=== PATIENT | female | born 1955 | race Caucasian/White ===

== ENCOUNTER 2018-12-28 06:34 | Inpatient (IN) | payer BC ==
[~2018-12-28] VITALS: Ht 177.8 cm; Wt 123.4 kg
[2018-12-28] VITALS (10 sets, daily range): BP systolic 99–140; BP diastolic 64–91
[2018-12-28] MEDS ORDERED: dilTIAZem 25 MG/5 ML VIAL IVP ONE ×2 (06:53→07:00)
[2018-12-28] MEDS ORDERED: IV NORMAL SALINE 1,000ML 1,000 ML IV SCH ×2 (06:54→08:25)
[2018-12-28] MEDS ORDERED: dilTIAZem VIAL 125 MG in IV DEXTROSE 5% 100 ML IV ONE (07:00)
--- NOTE | 2018-12-28 07:01 | PHYS DOC ---
Adult General Chief Complaint Chief Complaint: chest pain HPI HPI Patient is a 63 year old female who presents with complaint of chest pain and shortness of breath. Symptoms started over the past 3 days. Notes chest pain has been intermittent, however shortness of breath has been worsening during the past 3 days. States it's worse with exertion. Awoke with pressure-like chest pain this morning. Patient states that while at rest currently she is having no chest pain. Denies any history of any previous heart problems. Does admit to worsening lower extremity edema over the past few weeks. Denies fever. Recently seen within the last week by primary doctor. Diagnosed with urinary tract infection and started on antibiotic. Denies abdominal pain or bloody stools. Review of Systems Review of Systems Constitutional: Denies fever or chills [] Eyes: Denies change in visual acuity, redness, or eye pain [] HENT: Denies nasal congestion or sore throat [] Respiratory: Shortness of breath, denies cough[] Cardiovascular: Chest pain, dyspnea on exertion, lower extremity edema[] GI: Denies abdominal pain, nausea, vomiting, bloody stools or diarrhea [] : Denies dysuria or hematuria [] Musculoskeletal: Denies back pain or joint pain [] Integument: Denies rash or skin lesions [] Neurologic: Denies headache, focal weakness or sensory changes [] All other systems were reviewed and found to be within normal limits, except as documented in this note. Current Medications Current Medications Current Medications Medications (Trade) Dose Ordered Sig/Omid Start Time Stop Time Status Last Admin Dose Admin Diltiazem HCl (Cardizem Iv Push) 25 mg STK-MED ONCE 12/28/18 06:53 12/28/18 06:54 DC Physical Exam Physical Exam Constitutional: Alert, afebrile, appears ill and in moderate distress. [] HENT: Normocephalic, atraumatic, bilateral external ears normal, oropharynx moist, no oral exudates, nose normal. [] Eyes: PERRLA, EOMI, conjunctiva normal, no discharge. [] Neck: Normal range of motion, no tenderness, supple, no stridor. [] Cardiovascular: Tachycardia, irregular rhythm, no murmur [] Lungs & Thorax: Tachypneic, fine rales bilaterally, no wheezes[] Abdomen: Bowel sounds normal, soft, no tenderness, no masses, no pulsatile masses. [] Skin: Warm, dry, no erythema, no rash. [] Back: No tenderness, no CVA tenderness. [] Extremities: No tenderness, no cyanosis, no clubbing, ROM intact, 1+ edema in the bilateral lower extremities. [] Neurologic: Alert and oriented X 3, normal motor function, normal sensory function, no focal deficits noted. [] Current Patient Data Vital Signs Vital Signs Date Time Temp Pulse Resp B/P (MAP) Pulse Ox O2 Delivery O2 Flow Rate FiO2 12/28/18 07:10 171 150/89 (109) 12/28/18 07:10 20 94 Lab Results Laboratory Tests Test 12/28/18 06:45 12/28/18 07:40 White Blood Count 7.8 x10^3/uL Red Blood Count 4.93 x10^6/uL Hemoglobin 13.1 g/dL Hematocrit 39.9 % Mean Corpuscular Volume 81 fL Mean Corpuscular Hemoglobin 27 pg Mean Corpuscular Hemoglobin Concent 33 g/dL Red Cell Distribution Width 15.3 % Platelet Count 206 x10^3/uL Neutrophils (%) (Auto) 62 % Lymphocytes (%) (Auto) 28 % Monocytes (%) (Auto) 9 % Eosinophils (%) (Auto) 1 % Basophils (%) (Auto) 1 % Neutrophils # (Auto) 4.8 x10^3uL Lymphocytes # (Auto) 2.2 x10^3/uL Monocytes # (Auto) 0.7 x10^3/uL Eosinophils # (Auto) 0.1 x10^3/uL Basophils # (Auto) 0.1 x10^3/uL Prothrombin Time 11.5 SEC Prothromb Time International Ratio 1.2 Activated Partial Thromboplast Time 23 SEC D-Dimer (Neda) 1.92 mg/L Sodium Level 142 mmol/L Potassium Level 3.9 mmol/L Chloride Level 105 mmol/L Carbon Dioxide Level 25 mmol/L Anion Gap 12 Blood Urea Nitrogen 16 mg/dL Creatinine 1.1 mg/dL Estimated GFR (Cockcroft-Gault) 50.3 BUN/Creatinine Ratio 15 Glucose Level 146 mg/dL Calcium Level 8.8 mg/dL Magnesium Level 1.8 mg/dL Total Bilirubin 0.6 mg/dL Aspartate Amino Transf (AST/SGOT) 43 U/L Alanine Aminotransferase (ALT/SGPT) 41 U/L Alkaline Phosphatase 101 U/L Creatine Kinase 90 U/L Creatine Kinase MB (Mass) 1.1 ng/mL Creatine Kinase MB Relative Index 1.2 % Troponin I Quantitative 0.026 ng/mL XX-Stj-I-Type Natriuretic Peptide 3231 pg/mL Total Protein 7.1 g/dL Albumin 3.3 g/dL Albumin/Globulin Ratio 0.9 Urine Collection Type Unknown Urine Color Megan Urine Clarity Cloudy Urine pH 6.0 Urine Specific [place] 1.020 Urine Protein 30 mg/dl Urine Glucose (UA) Neg mg/dL Urine Ketones (Stick) Neg mg/dL Urine Blood Neg Urine Nitrite Neg Urine Bilirubin Neg Urine Urobilinogen Dipstick 4 mg/dL Urine Leukocyte Esterase Neg Urine RBC Rare /HPF Urine WBC 1-4 /HPF Urine Squamous Epithelial Cells Mod /LPF Urine Transitional Epithelial Cells Few /LPF Urine Bacteria Few /HPF Urine Hyaline Casts Occ /HPF Urine Mucus Marked /LPF Current Medications Medications (Trade) Dose Ordered Sig/Omid Route PRN Reason Start Time Stop Time Status Last Admin Dose Admin Diltiazem HCl (Cardizem Iv Push) 25 mg STK-MED ONCE IVP 12/28/18 06:53 12/28/18 06:54 DC Diltiazem HCl (Cardizem Iv Push) 20 mg 1X ONCE IVP 12/28/18 07:00 12/28/18 07:13 DC 12/28/18 07:02 Diltiazem HCl 125 mg/Dextrose 125 ml @ 10 mls/hr 1X ONCE IV 12/28/18 07:00 12/28/18 19:29 12/28/18 07:20 Sodium Chloride 1,000 ml @ 125 mls/hr Q8H IV 12/28/18 06:54 12/28/18 14:53 12/28/18 07:21 Ondansetron HCl (Zofran) 4 mg STK-MED ONCE .ROUTE 12/28/18 07:02 12/28/18 07:03 DC Dextrose 100 ml @ As Directed STK-MED ONCE IV 12/28/18 07:05 12/28/18 07:06 DC Diltiazem HCl (Cardizem) 125 mg STK-MED ONCE IV 12/28/18 07:05 12/28/18 07:06 DC Iohexol (Omnipaque 350 Mg/ml) 100 ml 1X ONCE IV 12/28/18 08:35 12/28/18 08:36 EKG EKG Interpreted by me: Heart rate 176, atrial fibrillation with rapid ventricular response, no acute ST/T-wave abnormalities[] Radiology/Procedures Radiology/Procedures [address] [address] IMAGING REPORT Signed PATIENT: JES GAMING ACCOUNT: [id number] : 1955 LOCATION: ICU AGE: 63 SEX: F EXAM STATUS: ADM IN ORD. PHYSICIAN: ALVIN RAMIREZ MD REASON: Chest pain, shortness of breath, chf, positive ddimer PROCEDURE: CT ANGIOGRAPHY CHEST CT arteriogram of the chest. HISTORY: Chest pain, short of breath, CHF, positive d-dimer CT arteriogram of the chest was done using 100 mL Omnipaque 350 contrast. Thyroid is homogeneous. Paratracheal lymph node is upper normal in size. There are moderate bilateral pleural effusions. Visualized portions of the liver and spleen are unremarkable. Patient's had a cholecystectomy. Adrenal glands are normal. There is a focal infiltrate or mass in the lateral right lung apex measuring 1.6 cm. Fall close interval follow-up study with the patient improves would be of benefit to exclude lung cancer. There is interstitial changes suggesting interstitial pulmonary edema. There is evidence of pulmonary emboli in the superior segment of the right lower lobe, in the right middle lobe. IMPRESSION: 1. IMPRESSION: 1. Right middle lobe and right lower lobe pulmonary emboli. 2. Bilateral pleural effusions. 3. Interstitial and alveolar changes suggesting pulmonary edema. 4. Right upper lobe infiltrate or pulmonary infarct although somewhat rounded in appearance and a mass is possible, follow-up would be of benefit. Electronically signed by: Bo Trinh MD (12/28/2018 9:05 AM) [facility] DICTATED AND SIGNED BY: BO TRINH MD DATE: 12/28/18904 CC: ALVIN RAMIREZ MD; AKASH WIGGINS MD; JAMIE DELGADO MD ~ [address] [address] IMAGING REPORT Signed PATIENT: JES GAMING ACCOUNT: [id number] : 1955 LOCATION: ER AGE: 63 SEX: F EXAM STATUS: REG ER ORD. PHYSICIAN: ALVIN RAMIREZ MD REASON: Chest pain PROCEDURE: PORTABLE CHEST 1V AP chest. HISTORY: Chest pain AP view was taken of the chest. Lungs are clear. Heart is normal in size without heart failure. There is no effusion. IMPRESSION: 1. No acute chest disease. Electronically signed by: Bo Trinh MD (12/28/2018 7:27 AM) [facility] DICTATED AND SIGNED BY: BO TRINH MD DATE: 12/28/18726 CC: ALVIN RAMIREZ MD; AKASH WIGGINS MD ~ [] Course & Med Decision Making Course & Med Decision Making Pertinent Labs and Imaging studies reviewed. (See chart for details) Patient was found to be in A. fib with RVR. Patient was administered 20 mg of IV Cardizem. Heart rate improved to 105-110 bpm after initial administration. Patient started on continuous Cardizem infusion. On reevaluation at 0720, the patient states that she is feeling better at this time. Lab work shows positive d-dimer. CT angiography of chest pending at time of admission. I spoke with Dr. Bedolla of cardiology regarding patient's condition. He agreed with initial management and stated that he would be happy to consult on patient here at [facility]. Patient admitted to Dr. Delgado. 0945: CT angio shows evidence of pulmonary emboli. Patient initiated on heparin treatment in transition to ICU bed. Critical care time excluding procedures: 45 minutes[] Dragon Disclaimer Dragon Disclaimer This electronic medical record was generated, in whole or in part, using a voice recognition dictation system. Departure Departure: Impression: Primary Impression: Atrial fibrillation with RVR Additional Impressions: Acute congestive heart failure Multiple pulmonary emboli Disposition: ADMITTED INPATIENT Admitting Physician: Other Condition: GUARDED Referrals: AKASH WIGGINS MD (PCP) Problem Qualifiers Additional Impressions: Acute congestive heart failure Heart failure type: unspecified Qualified Codes: I50.9 - Heart failure, unspecified ALVIN RAMIREZ MD Dec 28, 2018 07:01
[2018-12-28] MEDS ORDERED: ONDANSETRON PF 4 MG/2 ML VIAL. ONE (07:02)
[2018-12-28 07:04] LABS: BASO # 0.1 x10^3/uL (0.0-0.2); BASO % 1 % (0-3); EOS # 0.1 x10^3/uL (0.0-0.7); EOS % 1 % (0-3); HEMATOCRIT 39.9 % (36.0-47.0); HEMOGLOBIN 13.1 g/dL (12.0-15.5); LYMPH # 2.2 x10^3/uL (1.0-4.8); LYMPH % 28 % (24-48); MEAN CORPUSCULAR HEMOGLOBIN 27 pg (25-35); MEAN CORPUSCULAR HGB CONC 33 g/dL (31-37); MEAN CORPUSCULAR VOLUME 81 fL (79-100); MONO # 0.7 x10^3/uL (0.0-1.1); MONO % 9 % (0-9); NEUT # 4.8 x10^3uL (1.8-7.7); NEUT % 62 % (31-73); PLATELET COUNT 206 x10^3/uL (140-400); RED BLOOD COUNT 4.93 x10^6/uL (3.50-5.40); RED CELL DISTRIBUTION WIDTH 15.3 % (11.5-14.5); WHITE BLOOD COUNT 7.8 x10^3/uL (4.0-11.0)
[2018-12-28] MEDS ORDERED: IV DEXTROSE 5% 100 ML IV ONE (07:05)
--- NOTE | 2018-12-28 07:30 | RAD ---
AP chest. HISTORY: Chest pain AP view was taken of the chest. Lungs are clear. Heart is normal in size without heart failure. There is no effusion. IMPRESSION: 1. No acute chest disease. Electronically signed by: Bo Trinh MD (12/28/2018 7:27 AM) [facility]
[2018-12-28 07:41] LABS: ALBUMIN 3.3 g/dL (3.4-5.0); ALBUMIN/GLOBULIN RATIO 0.9 (1.0-1.7); CALCIUM 8.8 mg/dL (8.5-10.1); CREATININE 1.1 mg/dL (0.6-1.0); GFR 50.3; MAGNESIUM 1.8 mg/dL (1.8-2.4); POTASSIUM 3.9 mmol/L (3.5-5.1); TOTAL BILIRUBIN 0.6 mg/dL (0.2-1.0); TOTAL PROTEIN 7.1 g/dL (6.4-8.2)
[2018-12-28 08:09] LABS: BACTERIA,URINE FEW /HPF (0-FEW); BILIRUBIN,URINE NEG (NEG); CLARITY,URINE CLOUDY; COLOR,URINE AMBER; GLUCOSE,URINE NEG (NEG); HYALINE CASTS, URINE OCC /HPF; NITRITE,URINE NEG (NEG); RBC,URINE RARE /HPF (0-2); SQUAMOUS EPITHELIAL CELL,UR MOD /LPF; UROBILINOGEN,URINE 4 mg/dL (0.2 mg/dL)
[2018-12-28] MEDS ORDERED: ONDANSETRON PF 4 MG/2 ML VIAL. IV PRN ×2 (08:30→12:30)
[2018-12-28] MEDS ORDERED: IOHEXOL 350 MG/ML 100 ML VIAL. IV ONE (08:35)
--- NOTE | 2018-12-28 09:08 | RAD ---
CT arteriogram of the chest. HISTORY: Chest pain, short of breath, CHF, positive d-dimer CT arteriogram of the chest was done using 100 mL Omnipaque 350 contrast. Thyroid is homogeneous. Paratracheal lymph node is upper normal in size. There are moderate bilateral pleural effusions. Visualized portions of the liver and spleen are unremarkable. Patient's had a cholecystectomy. Adrenal glands are normal. There is a focal infiltrate or mass in the lateral right lung apex measuring 1.6 cm. Fall close interval follow-up study with the patient improves would be of benefit to exclude lung cancer. There is interstitial changes suggesting interstitial pulmonary edema. There is evidence of pulmonary emboli in the superior segment of the right lower lobe, in the right middle lobe. IMPRESSION: 1. IMPRESSION: 1. Right middle lobe and right lower lobe pulmonary emboli. 2. Bilateral pleural effusions. 3. Interstitial and alveolar changes suggesting pulmonary edema. 4. Right upper lobe infiltrate or pulmonary infarct although somewhat rounded in appearance and a mass is possible, follow-up would be of benefit. Electronically signed by: Bo Trinh MD (12/28/2018 9:05 AM) [facility]
[2018-12-28] MEDS ORDERED: HEPARIN 25,000UTS/500ML PREMIX 500 ML IV PRN ×3 (09:30→18:15)
[2018-12-28] MEDS ORDERED: HEPARIN for IV BOLUS 10,000 UNIT/10 ML VIAL. IV PRN ×2 (09:30)
[2018-12-28] MEDS ORDERED: HEPARIN for IV BOLUS 10,000 UNIT/10 ML VIAL. IV ONE ×2 (09:45→18:15)
[2018-12-28] MEDS ORDERED: SIMV40TA3 PO (10:05)
[2018-12-28] MEDS ORDERED: OMEP20CA9 PO (10:05)
[2018-12-28] MEDS ORDERED: FURO-69 PO (10:05)
[2018-12-28] MEDS ORDERED: ASPI-630 PO (10:05)
[2018-12-28] MEDS ORDERED: OLME20TA21 PO (10:05)
[2018-12-28] MEDS ORDERED: CELE200C PO (10:05)
--- NOTE | 2018-12-28 12:19 | EKG ---
[address] [address] Test Date: 2018-12-28 Test Time: 06:45:55 Pat Name: JES GAMING Department: Room: [place] [address] Gender: F Claims Account Manager: CLAUDY : 1955 Requested By: ALVIN RAMIREZ Order Number: [id number] Reading MD: Michael Bedolla MD Measurements Intervals [place] Rate: 176 P: RI: QRS: 71 QRSD: 72 T: -66 QT: 298 QTc: 514 Interpretive Statements ATRIAL FIBRILLATION WITH RVR NON-SPECIFIC ST/T CHANGES Electronically Signed On 01-02-2019 14:06:19 CDT by Michael Bedolla MD
[2018-12-28] MEDS ORDERED: FUROSEMIDE 40 MG/4 ML VIAL IVP SCH ×2 (13:45→21:00)
--- NOTE | 2018-12-28 19:15 | PDOC1 ---
History of Present Illness History of Present Illness The patient is a 63-year-old female with HLD, HTN, GERD. She comes to the hospital because for the last couple days she has been having increased amount of shortness of breath and some chest heaviness. She states that approximately started about 3 days ago. She states that he has been getting worse especially on exertion. She told this to her primary care physician who had ordered a stress test for the patient, she was also treated for UTI. She denies any fevers, chills, nausea, vomiting, because the patient, diarrhea, abdominal pain , dysuria. She does state that she has been lightheaded. In the ER she was found to be in atrial fibrillation with RVR, a CT scan showed pulmonary emboli with bilateral pleural effusions, and possible pulmonary infarct versus mass. Chief Complaint: CHEST PAIN Allergies: Coded Allergies: No Known Drug Allergies (Unverified , 12/28/18) Past Medical History Cardiac: HTN, hyperipidemia GI: GERD Past Social History Smoke: No Review of Systems Review Of Systems Fourteen system , review of systems has been reviewed. See HPI for pertinent positives and negative responses, other bradford all other systems are negative, non pertinent or non contributory Medications Current Medications Diltiazem HCl (Cardizem Iv Push) 25 mg STK-MED ONCE IVP ; Start 12/28/18 at 06: 53; Stop 12/28/18 at 06:54; Status DC Diltiazem HCl (Cardizem Iv Push) 20 mg 1X ONCE IVP Last administered on at 07:02; Start 12/28/18 at 07:00; Stop 12/28/18 at 07:13; Status DC Diltiazem HCl 125 mg/Dextrose 125 ml @ 10 mls/hr 1X ONCE IV Last administered on 12/28/18at 07:20; Start 12/28/18 at 07:00; Stop 12/28/18 at 19:29 Sodium Chloride 1,000 ml @ 125 mls/hr Q8H IV Last administered on 12/28/18at 07 :21; Start 12/28/18 at 06:54; Stop 12/28/18 at 14:53; Status DC Ondansetron HCl (Zofran) 4 mg STK-MED ONCE .ROUTE ; Start 12/28/18 at 07:02; Stop 12/28/18 at 07:03; Status DC Dextrose 100 ml @ As Directed STK-MED ONCE IV ; Start 12/28/18 at 07:05; Stop 12/28/18 at 07:06; Status DC Diltiazem HCl (Cardizem) 125 mg STK-MED ONCE IV ; Start 12/28/18 at 07:05; Stop 12/28/18 at 07:06; Status DC Iohexol (Omnipaque 350 Mg/ml) 100 ml 1X ONCE IV Last administered on at 08:32; Start 12/28/18 at 08:35; Stop 12/28/18 at 08:36; Status DC Ondansetron HCl (Zofran) 4 mg PRN Q4HRS PRN IV NAUSEA/VOMITING; Start 12/28/18 at 08:30; Stop 12/28/18 at 12:41; Status DC Sodium Chloride 1,000 ml @ 0 mls/hr Q0M IV ; Start 12/28/18 at 08:25; Stop at 08:24 Diltiazem HCl 125 mg/Dextrose 125 ml @ 5 mls/hr CONT PRN IV SEE I/O RECORD; Start 12/28/18 at 08:30 Heparin Sodium/ Dextrose 500 ml @ 0 mls/hr CONT PRN IV SEE I/O RECORD Last administered on 12/28/18at 10:25; Start 12/28/18 at 09:30; Stop 12/28/18 at 18:12 ; Status DC Heparin Sodium/ Dextrose 500 ml @ 0 mls/hr CONT PRN IV SEE I/O RECORD; Start at 09:30; Status UNV Heparin Sodium (Porcine) (Heparin Sodium) 2,000 unit PRN Q6HRS PRN IV FOLLOW PROTOCOL GUIDELINES; Start 12/28/18 at 09:30 Heparin Sodium (Porcine) (Heparin Sodium) 1,000 unit PRN Q6HRS PRN IV FOLLOW PROTOCOL GUIDELINES; Start 12/28/18 at 09:30 Heparin Sodium (Porcine) (Heparin Sodium) 8,000 unit 1X ONCE IV Last administered on 12/28/18at 10:26; Start 12/28/18 at 09:45; Stop 12/28/18 at 09:46 ; Status DC Aspirin (Children'S Aspirin) 81 mg DAILYWBKFT PO ; Start 12/29/18 at 08:00 Losartan Potassium (Cozaar) 100 mg DAILY PO ; Start 12/29/18 at 09:00 Pantoprazole Sodium (Protonix) 40 mg DAILYAC PO ; Start 12/29/18 at 07:30 Atorvastatin Calcium (Lipitor) 20 mg QHS PO ; Start 12/28/18 at 21:00 Ondansetron HCl (Zofran) 4 mg PRN Q4HRS PRN IV NAUSEA/VOMITING; Start 12/28/18 at 12:30 Furosemide (Lasix) 40 mg BID IVP ; Start 12/28/18 at 21:00; Stop 12/28/18 at 21: 00; Status DC Furosemide (Lasix) 40 mg BID IVP Last administered on 12/28/18at 13:55; Start at 13:45; Stop 12/28/18 at 14:03; Status DC Furosemide (Lasix) 40 mg BID92 IVP ; Start 12/29/18 at 09:00 Heparin Sodium/ Dextrose 500 ml @ 0 mls/hr CONT PRN IV SEE I/O RECORD; Start at 18:15 Heparin Sodium (Porcine) (Heparin Sodium) 8,000 unit 1X ONCE IV Last administered on 12/28/18at 18:15; Start 12/28/18 at 18:15; Stop 12/28/18 at 18:17 ; Status DC Active Scripts Active Reported Aspirin 81 Mg Tab.chew 81 Mg PO DAILY Lasix (Furosemide) 20 Mg Tablet 1 Tab PO DAILY Simvastatin 40 Mg Tablet 1 Tab PO QHS Olmesartan Medoxomil 20 Mg Tablet 20 Mg PO DAILY Celebrex (Celecoxib) 200 Mg Capsule 1 Cap PO DAILY Omeprazole 20 Mg Capsule.dr 1 Cap PO DAILY Exam Vital Signs Vital Signs Date Time Temp Pulse Resp B/P (MAP) Pulse Ox O2 Delivery O2 Flow Rate FiO2 12/28/18 18:05 100 26 126/81 (96) 12/28/18 17:30 94 Room Air 12/28/18 07:03 2.0 Alert oriented 3, no acute distress PERRLA, EOMI Irregularly irregular Clear at the apex, crackles at the bases bilaterally Positive pulses, nontender, nondistended Cranial nerves II to XII grossly intact Assessment/Plan Assessment/Plan Atrial fibrillation with RVR -Cardiology consult -Diltiazem drip -Likely will need to start on oral heart rate treatment -Heparin drip Pulmonary embolism -Continue heparin drip -Ultrasound of the legs bilaterally -may need hypercoagulable w/u as outpt Acute diastolic heart failure likely due to atrial fibrillation with RVR -Cardiology consult -Lasix 40 mill grams IV twice a day -Daily weights and ins and outs -Echo HLD -cont statin Prophylaxis Heparin drip Full code COURSE Allergies Coded Allergies Type Severity Reaction Last Updated Verified No Known Drug Allergies 12/28/18 No Laboratory Tests Test 12/28/18 06:45 12/28/18 07:40 12/28/18 11:36 12/28/18 14:40 White Blood Count 7.8 x10^3/uL (4.0-11.0) Red Blood Count 4.93 x10^6/uL (3.50-5.40) Hemoglobin 13.1 g/dL (12.0-15.5) Hematocrit 39.9 % (36.0-47.0) Mean Corpuscular Volume 81 fL (79-100) Mean Corpuscular Hemoglobin 27 pg (25-35) Mean Corpuscular Hemoglobin Concent 33 g/dL (31-37) Red Cell Distribution Width 15.3 % (11.5-14.5) Platelet Count 206 x10^3/uL (140-400) Neutrophils (%) (Auto) 62 % (31-73) Lymphocytes (%) (Auto) 28 % (24-48) Monocytes (%) (Auto) 9 % (0-9) Eosinophils (%) (Auto) 1 % (0-3) Basophils (%) (Auto) 1 % (0-3) Neutrophils # (Auto) 4.8 x10^3uL (1.8-7.7) Lymphocytes # (Auto) 2.2 x10^3/uL (1.0-4.8) Monocytes # (Auto) 0.7 x10^3/uL (0.0-1.1) Eosinophils # (Auto) 0.1 x10^3/uL (0.0-0.7) Basophils # (Auto) 0.1 x10^3/uL (0.0-0.2) Prothrombin Time 11.5 SEC (9.4-11.4) Prothromb Time International Ratio 1.2 (0.9-1.1) Activated Partial Thromboplast Time 23 SEC (23-33) D-Dimer (Neda) 1.92 mg/L (0.00-0.50) Sodium Level 142 mmol/L (136-145) Potassium Level 3.9 mmol/L (3.5-5.1) Chloride Level 105 mmol/L (98-107) Carbon Dioxide Level 25 mmol/L (21-32) Anion Gap 12 (6-14) Blood Urea Nitrogen 16 mg/dL (7-20) Creatinine 1.1 mg/dL (0.6-1.0) Estimated GFR (Cockcroft-Gault) 50.3 BUN/Creatinine Ratio 15 (6-20) Glucose Level 146 mg/dL (70-99) Calcium Level 8.8 mg/dL (8.5-10.1) Magnesium Level 1.8 mg/dL (1.8-2.4) Total Bilirubin 0.6 mg/dL (0.2-1.0) Aspartate Amino Transf (AST/SGOT) 43 U/L (15-37) Alanine Aminotransferase (ALT/SGPT) 41 U/L (14-59) Alkaline Phosphatase 101 U/L (46-116) Creatine Kinase 90 U/L (26-192) Creatine Kinase MB (Mass) 1.1 ng/mL (0.0-3.6) Creatine Kinase MB Relative Index 1.2 % (0-4) Troponin I Quantitative 0.026 ng/mL (0-0.055) 0.041 ng/mL (0-0.055) 0.038 ng/mL (0-0.055) BJ-Fpf-E-Type Natriuretic Peptide 3231 pg/mL (0-124) Total Protein 7.1 g/dL (6.4-8.2) Albumin 3.3 g/dL (3.4-5.0) Albumin/Globulin Ratio 0.9 (1.0-1.7) Urine Collection Type Unknown Urine Color Megan Urine Clarity Cloudy Urine pH 6.0 Urine Specific [place] 1.020 Urine Protein 30 mg/dl (NEG-TRACE) Urine Glucose (UA) Neg mg/dL (NEG) Urine Ketones (Stick) Neg mg/dL (NEG) Urine Blood Neg (NEG) Urine Nitrite Neg (NEG) Urine Bilirubin Neg (NEG) Urine Urobilinogen Dipstick 4 mg/dL (0.2 mg/dL) Urine Leukocyte Esterase Neg (NEG) Urine RBC Rare /HPF (0-2) Urine WBC 1-4 /HPF (0-4) Urine Squamous Epithelial Cells Mod /LPF Urine Transitional Epithelial Cells Few /LPF Urine Bacteria Few /HPF (0-FEW) Urine Hyaline Casts Occ /HPF Urine Mucus Marked /LPF Test 12/28/18 16:10 Prothrombin Time 11.6 SEC (9.4-11.4) Prothromb Time International Ratio 1.2 (0.9-1.1) Activated Partial Thromboplast Time 23 SEC (23-33) Current Medications Medications (Trade) Dose Ordered Sig/Omid Route PRN Reason Start Time Stop Time Status Last Admin Dose Admin Diltiazem HCl (Cardizem Iv Push) 25 mg STK-MED ONCE IVP 12/28/18 06:53 12/28/18 06:54 DC Diltiazem HCl (Cardizem Iv Push) 20 mg 1X ONCE IVP 12/28/18 07:00 12/28/18 07:13 DC 12/28/18 07:02 Diltiazem HCl 125 mg/Dextrose 125 ml @ 10 mls/hr 1X ONCE IV 12/28/18 07:00 12/28/18 19:29 12/28/18 07:20 Sodium Chloride 1,000 ml @ 125 mls/hr Q8H IV 12/28/18 06:54 12/28/18 14:53 DC 12/28/18 07:21 Ondansetron HCl (Zofran) 4 mg STK-MED ONCE .ROUTE 12/28/18 07:02 12/28/18 07:03 DC Dextrose 100 ml @ As Directed STK-MED ONCE IV 12/28/18 07:05 12/28/18 07:06 DC Diltiazem HCl (Cardizem) 125 mg STK-MED ONCE IV 12/28/18 07:05 12/28/18 07:06 DC Iohexol (Omnipaque 350 Mg/ml) 100 ml 1X ONCE IV 12/28/18 08:35 12/28/18 08:36 DC 12/28/18 08:32 Ondansetron HCl (Zofran) 4 mg PRN Q4HRS PRN IV NAUSEA/VOMITING 12/28/18 08:30 12/28/18 12:41 DC Sodium Chloride 1,000 ml @ 0 mls/hr Q0M IV 12/28/18 08:25 12/29/18 08:24 Diltiazem HCl 125 mg/Dextrose 125 ml @ 5 mls/hr CONT PRN IV SEE I/O RECORD 12/28/18 08:30 Heparin Sodium/ Dextrose 500 ml @ 0 mls/hr CONT PRN IV SEE I/O RECORD 12/28/18 09:30 12/28/18 18:12 DC 12/28/18 10:25 Heparin Sodium/ Dextrose 500 ml @ 0 mls/hr CONT PRN IV SEE I/O RECORD 12/28/18 09:30 UNV Heparin Sodium (Porcine) (Heparin Sodium) 2,000 unit PRN Q6HRS PRN IV FOLLOW PROTOCOL GUIDELINES 12/28/18 09:30 Heparin Sodium (Porcine) (Heparin Sodium) 1,000 unit PRN Q6HRS PRN IV FOLLOW PROTOCOL GUIDELINES 12/28/18 09:30 Heparin Sodium (Porcine) (Heparin Sodium) 8,000 unit 1X ONCE IV 12/28/18 09:45 12/28/18 09:46 DC 12/28/18 10:26 Aspirin (Children'S Aspirin) 81 mg DAILYWBKFT PO 12/29/18 08:00 Losartan Potassium (Cozaar) 100 mg DAILY PO 12/29/18 09:00 Pantoprazole Sodium (Protonix) 40 mg DAILYAC PO 12/29/18 07:30 Atorvastatin Calcium (Lipitor) 20 mg QHS PO 12/28/18 21:00 Ondansetron HCl (Zofran) 4 mg PRN Q4HRS PRN IV NAUSEA/VOMITING 12/28/18 12:30 Furosemide (Lasix) 40 mg BID IVP 12/28/18 21:00 12/28/18 21:00 DC Furosemide (Lasix) 40 mg BID IVP 12/28/18 13:45 12/28/18 14:03 DC 12/28/18 13:55 Furosemide (Lasix) 40 mg BID92 IVP 12/29/18 09:00 Heparin Sodium/ Dextrose 500 ml @ 0 mls/hr CONT PRN IV SEE I/O RECORD 12/28/18 18:15 Heparin Sodium (Porcine) (Heparin Sodium) 8,000 unit 1X ONCE IV 12/28/18 18:15 12/28/18 18:17 DC 12/28/18 18:15 Orders Procedure Category Date Status Time Diltiazem Iv Push PHA 12/28/18 Complete (Cardizem Iv Push) 06:53 Vital Signs ER 12/28/18 Transmitted 06:54 Bp Monitoring ER 12/28/18 Transmitted 06:54 Refrigeration Systems Installer ER 12/28/18 Transmitted 06:54 Continuous Pulse ER 12/28/18 Transmitted Oximetry 06:54 Saline Lock ER 12/28/18 Transmitted 06:54 Cbc W Autodiff LAB 12/28/18 Complete 06:54 Troponin I LAB 12/28/18 Complete 06:54 Protime LAB 12/28/18 Complete 06:54 Ckmb Isoenzymes LAB 12/28/18 Complete 06:54 Magnesium LAB 12/28/18 Complete 06:54 D-Dimer LAB 12/28/18 Complete 06:54 Ua, Cult If Indicated LAB 12/28/18 Complete 06:54 Nt-Pro Bnp LAB 12/28/18 Complete 06:54 Portable Chest 1v RAD 12/28/18 Resulted 06:54 Diltiazem Iv Push PHA 12/28/18 Complete (Cardizem Iv Push) 07:00 Diltiazem Vial PHA 12/28/18 In Process (Cardizem) 07:00 12 Lead Ekg EKG 12/28/18 Complete 06:54 Comprehensive LAB 12/28/18 Complete Metabolic Panel 06:54 Partial LAB 12/28/18 Complete Thromboplastin Time 06:54 Pulse Oximetry: [facility] 12/28/18 In Process Standing Order 06:54 Iv Normal Saline PHA 12/28/18 Complete 1,000ml (Iv Sodium 06:54 Ondansetron Pf PHA 12/28/18 Complete (Zofran) 07:02 Iv Dextrose 5% PHA 12/28/18 Complete 07:05 Diltiazem Vial PHA 12/28/18 Complete (Cardizem) 07:[address] 12/28/18 Resulted 08:16 Iohexol 350 Mg/Ml PHA 12/28/18 Complete (Omnipaque 350 Mg/Ml) 08:35 Ed Bridge Order ADT 12/28/18 Transmitted 08:25 Code Status CODE 12/28/18 Complete 08:25 Vital Signs, Per [facility]MON 12/28/18 In Process Protocol 08:25 Oxygen [facility]MON 12/28/18 In Process 08:25 Cardiac DIET 12/28/18 Complete Breakfast Fall Precautions [facility] 12/28/18 In Process 08:25 Cbc W Autodiff LAB 12/29/18 Verified 06:00 Basic Metabolic Panel LAB 12/29/18 Verified 06:00 Ondansetron Pf PHA 12/28/18 Complete (Zofran) 08:30 Consult Physician By CONS 12/28/18 Transmitted Name 08:25 Troponin I LAB 12/28/18 Complete 11:25 Iv Normal Saline PHA 12/28/18 In Process 1,000ml (Iv Sodium 08:25 Troponin I LAB 12/28/18 Complete 14:25 Diltiazem Vial PHA 12/28/18 In Process (Cardizem) 08:30 Heparin PHA 12/28/18 Complete 25,000uts/500ml 09:30 Heparin For Iv Bolus PHA 12/28/18 In Process (Heparin Sodium) 09:30 Heparin For Iv Bolus PHA 12/28/18 In Process (Heparin Sodium) 09:30 Heparin For Iv Bolus PHA 12/28/18 Complete (Heparin Sodium) 09:45 Admit Orders ADT 12/28/18 Transmitted Mrsa, Pcr LAB 12/28/18 In Process 10:40 Apply Carter Stockings AMMON 12/28/18 In Process And Bhanu Wr 10:00 Pneumatic Compression AMMON 12/28/18 In Process Device 10:00 Isolation OTHER 12/28/18 Transmitted 10:00 Partial LAB 12/28/18 Complete Thromboplastin Time 16:00 Protime LAB 12/28/18 Complete 16:00 Aspirin (Children's PHA 12/29/18 In Process Aspirin) 08:00 Losartan (Cozaar) PHA 12/29/18 In Process 09:00 Pantoprazole PHA 12/29/18 In Process (Protonix) 07:30 Atorvastatin Calcium PHA 12/28/18 In Process (Lipitor) 21:00 Admit Orders ADT 12/28/18 Transmitted Code Status CODE 12/28/18 Transmitted 12:20 Cardiac DIET 12/28/18 Transmitted Dinner Ondansetron Pf PHA 12/28/18 In Process (Zofran) 12:30 [id number] Echocardiogram ECHO 12/28/18 Logged 12:20 Ambulate With AMMON 12/28/18 In Process Assistance Furosemide Inj (Lasix) PHA 12/28/18 Complete 21:00 Furosemide Inj (Lasix) PHA 12/28/18 Complete 13:45 Furosemide Inj (Lasix) PHA 12/29/18 In Process 09:00 Partial LAB 12/28/18 Logged Thromboplastin Time 22:00 Heparin PHA 12/28/18 In Process 25,000uts/500ml 18:15 Heparin For Iv Bolus PHA 12/28/18 Complete (Heparin Sodium) 18:15 Venous Lower Ext US 12/29/18 Logged Bilateral 07:00 Vital Signs Date Time Temp Pulse Resp B/P (MAP) Pulse Ox O2 Delivery O2 Flow Rate FiO2 12/28/18 18:05 100 26 126/81 (96) 12/28/18 17:30 94 Room Air 12/28/18 07:03 2.0 JAMIE DELGADO MD Dec 28, 2018 19:15
[2018-12-28] MEDS: dilTIAZem VIAL 125 MG in IV DEXTROSE 5% 100 ML IV PRN (19:26)
[2018-12-28] MEDS: ATORVASTATIN CALCIUM 20 MG TABLET PO SCH (19:58)
--- NOTE | 2018-12-28 23:57 | PDOC ---
PROVIDER NOTE PROVIDER NOTE PROVIDER NOTE CARDIOLOGY CONSULTATION NOTE: REASON FOR CONSULTATION: AFIB HPI: 63 y.o woman presenting with dyspnea. Found to have incidental afib and also with new P.E. On anticoagulation. She reports at baseline she is in good health. No cardiac symptoms. No prior arrhythmias. No clear etiology for P.E based on patient history except hypercoag family history. Good functional capacity at baseline PMH HTN DLP Obesity Sochx: . Retired. No alcohol, tob or illicits. Famhx: +father with recurrent blood clots at age 40 ROS: As in HPI Physical Exam: Constitutional: Well developed, well nourished, no acute distress, non-toxic appearance. HENT: Normocephalic, atraumatic, bilateral external ears normal, oropharynx moist, no oral exudates, nose normal. Eyes: EOMI, conjunctiva normal, no discharge. Neck: Normal range of motion, no tenderness, supple, no stridor. Cardiovascular: JVP not elevated. No carotid bruit. Nor precordial pulsations or heaves. S1 N,S2N. No murmurs. No rubs or clicks. Thorax and Lungs: Normal respiration. Normal chest expansion Equal breath sounds. Decreased breath sounds at the bases. Abdomen: Bowel sounds normal, soft, no tenderness, no masses, no pulsatile masses. Skin: Warm, dry, no erythema, no rash. Back: No tenderness, no CVA tenderness. Extremities: Intact distal pulses, no tenderness, no cyanosis, no clubbing, ROM intact, trace edema Neurologic: Alert and oriented X 3, no focal deficits noted. Psychologic: Affect normal, judgement normal, mood normal. Labs reviewed Trop negative EKG with afib and NSST changes Impression: 1. Afib 2. P.E 3. HTN Plan 1. Continue anticoagulation with heparin for now. Bridge to oral therapy in a.m if LE u/s negative. 2. Afib likely a sequelae of p.e. Supportive care. rate controlled. Consider outpt cardioversion 3. Check echo. Supportive care. Thanks for the consultation. VASU DISLA MD Dec 28, 2018 23:57
[2018-12-29] VITALS (13 sets, daily range): BP systolic 102–124; BP diastolic 61–87
[2018-12-29 07:20] LABS: CALCIUM 8.5 mg/dL (8.5-10.1); CREATININE 0.8 mg/dL (0.6-1.0); GFR 72.7; POTASSIUM 3.3 mmol/L (3.5-5.1)
[2018-12-29 07:22] LABS: BASO % 1 % (0-3); EOS # 0.1 x10^3/uL (0.0-0.7); EOS % 1 % (0-3); HEMATOCRIT 35.3 % (36.0-47.0); HEMOGLOBIN 11.6 g/dL (12.0-15.5); LYMPH # 1.8 x10^3/uL (1.0-4.8); LYMPH % 26 % (24-48); MEAN CORPUSCULAR HEMOGLOBIN 26 pg (25-35); MEAN CORPUSCULAR HGB CONC 33 g/dL (31-37); MEAN CORPUSCULAR VOLUME 80 fL (79-100); MONO # 0.7 x10^3/uL (0.0-1.1); MONO % 10 % (0-9); NEUT # 4.2 x10^3uL (1.8-7.7); NEUT % 63 % (31-73); PLATELET COUNT 174 x10^3/uL (140-400); RED BLOOD COUNT 4.42 x10^6/uL (3.50-5.40); RED CELL DISTRIBUTION WIDTH 15.3 % (11.5-14.5); WHITE BLOOD COUNT 6.8 x10^3/uL (4.0-11.0)
[2018-12-29] MEDS ORDERED: ASPIRIN 81 MG TAB.CHEW PO SCH (08:00)
[2018-12-29] MEDS ORDERED: POTASSIUM CHLORIDE 20 MEQ TABLET.ER. PO ONE (08:00)
[2018-12-29] MEDS: dilTIAZem VIAL 125 MG in IV DEXTROSE 5% 100 ML IV PRN (08:29)
[2018-12-29] MEDS: FUROSEMIDE 40 MG/4 ML VIAL IVP SCH ×2 (08:34→13:51)
[2018-12-29] MEDS: LOSARTAN 50 MG TABLET. PO SCH (08:35)
[2018-12-29] MEDS: PANTOPRAZOLE 40 MG TABLET. PO SCH (08:35)
--- NOTE | 2018-12-29 10:58 | RAD ---
Examination: Bilateral Lower Extremity Venous Doppler Ultrasound History: Pulmonary embolism Comparison: None Procedure: Cha scale, color flow 2D and spectal waveform analysis images are obtained with and without compression in the area of the common femoral vein, superficial femoral vein - femoral vein junction, main femoral vein (superficial femoral vein) and popliteal vein. Veins of the proximal calf are also imaged. Findings: There is normal duplex flow, color flow and compressibility of all visualized vein segments. No evidence of deep venous thrombus is present. Impression: No evidence of DVT in the visualized bilateral lower extremity venous. Electronically signed by: Jean Alonso MD (12/29/2018 10:55 AM) [facility]
--- NOTE | 2018-12-29 13:12 | PDOC ---
PROGRESS NOTES Diagnosis Problem Problems Medical Problems: (1) Acute congestive heart failure Status: Acute (2) Atrial fibrillation with RVR Status: Acute (3) Multiple pulmonary emboli Status: Acute DRAGON Assessment/Plan Assessment/Plan Atrial fibrillation with RVR- likely brought on by PE -Cardiology consult -Diltiazem drip still at 10 ml/hr, -Likely will need to start on oral heart rate treatment -Heparin drip Pulmonary embolism -Continue heparin drip for now -Ultrasound of the legs bilaterally--negative for DVTs -may need hypercoagulable w/u as outpt -pt can be switched to PO anticoagulation tomorrow, Acute diastolic heart failure likely due to atrial fibrillation with RVR -Cardiology consult -Lasix 40 mill grams IV twice a day -Daily weights and ins and outs -Echo--pending HLD -cont statin Prophylaxis Heparin drip Full code SUBJECTIVE: feeling well, no F/C less SOB, no CP PHYSICAL EXAM: Alert oriented 3, no acute distress PERRLA, EOMI Irregularly irregular Clear at the apex, crackles at the bases bilaterally-- improving Positive pulses, nontender, nondistended Cranial nerves II to XII grossly intact Assessment Problems Medical Problems: (1) Acute congestive heart failure Status: Acute (2) Atrial fibrillation with RVR Status: Acute (3) Multiple pulmonary emboli Status: Acute Objective Vital Signs Date Time Temp Pulse Resp B/P (MAP) Pulse Ox O2 Delivery O2 Flow Rate FiO2 12/29/18 12:04 112 12/29/18 08:38 98.1 12/29/18 08:35 109/67 12/29/18 08:30 24 95 Room Air 12/29/18 06:02 2.0 Intake and Output 12/29/18 06:59 Intake Total 1200 ml Output Total 400 ml Balance 800 ml Intake Oral 1200 ml Output Urine Total 400 ml # Voids 10 Review of Relevant I have reviewed the following items brandon (where applicable) has been applied. Labs Laboratory Tests Test 12/28/18 06:45 12/28/18 07:40 12/28/18 11:36 12/28/18 14:40 White Blood Count 7.8 x10^3/uL (4.0-11.0) Red Blood Count 4.93 x10^6/uL (3.50-5.40) Hemoglobin 13.1 g/dL (12.0-15.5) Hematocrit 39.9 % (36.0-47.0) Mean Corpuscular Volume 81 fL (79-100) Mean Corpuscular Hemoglobin 27 pg (25-35) Mean Corpuscular Hemoglobin Concent 33 g/dL (31-37) Red Cell Distribution Width 15.3 % (11.5-14.5) Platelet Count 206 x10^3/uL (140-400) Neutrophils (%) (Auto) 62 % (31-73) Lymphocytes (%) (Auto) 28 % (24-48) Monocytes (%) (Auto) 9 % (0-9) Eosinophils (%) (Auto) 1 % (0-3) Basophils (%) (Auto) 1 % (0-3) Neutrophils # (Auto) 4.8 x10^3uL (1.8-7.7) Lymphocytes # (Auto) 2.2 x10^3/uL (1.0-4.8) Monocytes # (Auto) 0.7 x10^3/uL (0.0-1.1) Eosinophils # (Auto) 0.1 x10^3/uL (0.0-0.7) Basophils # (Auto) 0.1 x10^3/uL (0.0-0.2) Prothrombin Time 11.5 SEC (9.4-11.4) Prothromb Time International Ratio 1.2 (0.9-1.1) Activated Partial Thromboplast Time 23 SEC (23-33) D-Dimer (Neda) 1.92 mg/L (0.00-0.50) Sodium Level 142 mmol/L (136-145) Potassium Level 3.9 mmol/L (3.5-5.1) Chloride Level 105 mmol/L (98-107) Carbon Dioxide Level 25 mmol/L (21-32) Anion Gap 12 (6-14) Blood Urea Nitrogen 16 mg/dL (7-20) Creatinine 1.1 mg/dL (0.6-1.0) Estimated GFR (Cockcroft-Gault) 50.3 BUN/Creatinine Ratio 15 (6-20) Glucose Level 146 mg/dL (70-99) Calcium Level 8.8 mg/dL (8.5-10.1) Magnesium Level 1.8 mg/dL (1.8-2.4) Total Bilirubin 0.6 mg/dL (0.2-1.0) Aspartate Amino Transf (AST/SGOT) 43 U/L (15-37) Alanine Aminotransferase (ALT/SGPT) 41 U/L (14-59) Alkaline Phosphatase 101 U/L (46-116) Creatine Kinase 90 U/L (26-192) Creatine Kinase MB (Mass) 1.1 ng/mL (0.0-3.6) Creatine Kinase MB Relative Index 1.2 % (0-4) Troponin I Quantitative 0.026 ng/mL (0-0.055) 0.041 ng/mL (0-0.055) 0.038 ng/mL (0-0.055) LT-Tnv-I-Type Natriuretic Peptide 3231 pg/mL (0-124) Total Protein 7.1 g/dL (6.4-8.2) Albumin 3.3 g/dL (3.4-5.0) Albumin/Globulin Ratio 0.9 (1.0-1.7) Urine Collection Type Unknown Urine Color Megan Urine Clarity Cloudy Urine pH 6.0 Urine Specific Labelle 1.020 Urine Protein 30 mg/dl (NEG-TRACE) Urine Glucose (UA) Neg mg/dL (NEG) Urine Ketones (Stick) Neg mg/dL (NEG) Urine Blood Neg (NEG) Urine Nitrite Neg (NEG) Urine Bilirubin Neg (NEG) Urine Urobilinogen Dipstick 4 mg/dL (0.2 mg/dL) Urine Leukocyte Esterase Neg (NEG) Urine RBC Rare /HPF (0-2) Urine WBC 1-4 /HPF (0-4) Urine Squamous Epithelial Cells Mod /LPF Urine Transitional Epithelial Cells Few /LPF Urine Bacteria Few /HPF (0-FEW) Urine Hyaline Casts Occ /HPF Urine Mucus Marked /LPF Test 12/28/18 16:10 12/29/18 00:25 12/29/18 06:22 12/29/18 10:15 Prothrombin Time 11.6 SEC (9.4-11.4) Prothromb Time International Ratio 1.2 (0.9-1.1) Activated Partial Thromboplast Time 23 SEC (23-33) > 130 SEC (23-33) 78 SEC (23-33) White Blood Count 6.8 x10^3/uL (4.0-11.0) Red Blood Count 4.42 x10^6/uL (3.50-5.40) Hemoglobin 11.6 g/dL (12.0-15.5) Hematocrit 35.3 % (36.0-47.0) Mean Corpuscular Volume 80 fL (79-100) Mean Corpuscular Hemoglobin 26 pg (25-35) Mean Corpuscular Hemoglobin Concent 33 g/dL (31-37) Red Cell Distribution Width 15.3 % (11.5-14.5) Platelet Count 174 x10^3/uL (140-400) Neutrophils (%) (Auto) 63 % (31-73) Lymphocytes (%) (Auto) 26 % (24-48) Monocytes (%) (Auto) 10 % (0-9) Eosinophils (%) (Auto) 1 % (0-3) Basophils (%) (Auto) 1 % (0-3) Neutrophils # (Auto) 4.2 x10^3uL (1.8-7.7) Lymphocytes # (Auto) 1.8 x10^3/uL (1.0-4.8) Monocytes # (Auto) 0.7 x10^3/uL (0.0-1.1) Eosinophils # (Auto) 0.1 x10^3/uL (0.0-0.7) Basophils # (Auto) 0.0 x10^3/uL (0.0-0.2) Sodium Level 139 mmol/L (136-145) Potassium Level 3.3 mmol/L (3.5-5.1) Chloride Level 105 mmol/L (98-107) Carbon Dioxide Level 24 mmol/L (21-32) Anion Gap 10 (6-14) Blood Urea Nitrogen 13 mg/dL (7-20) Creatinine 0.8 mg/dL (0.6-1.0) Estimated GFR (Cockcroft-Gault) 72.7 Glucose Level 104 mg/dL (70-99) Calcium Level 8.5 mg/dL (8.5-10.1) Medications Current Medications Diltiazem HCl (Cardizem Iv Push) 25 mg STK-MED ONCE IVP ; Start 12/28/18 at 06: 53; Stop 12/28/18 at 06:54; Status DC Diltiazem HCl (Cardizem Iv Push) 20 mg 1X ONCE IVP Last administered on at 07:02; Start 12/28/18 at 07:00; Stop 12/28/18 at 07:13; Status DC Diltiazem HCl 125 mg/Dextrose 125 ml @ 10 mls/hr 1X ONCE IV Last administered on 12/28/18at 07:20; Start 12/28/18 at 07:00; Stop 12/28/18 at 19:29 ; Status DC Sodium Chloride 1,000 ml @ 125 mls/hr Q8H IV Last administered on 12/28/18at 07 :21; Start 12/28/18 at 06:54; Stop 12/28/18 at 14:53; Status DC Ondansetron HCl (Zofran) 4 mg STK-MED ONCE .ROUTE ; Start 12/28/18 at 07:02; Stop 12/28/18 at 07:03; Status DC Dextrose 100 ml @ As Directed STK-MED ONCE IV ; Start 12/28/18 at 07:05; Stop 12/28/18 at 07:06; Status DC Diltiazem HCl (Cardizem) 125 mg STK-MED ONCE IV ; Start 12/28/18 at 07:05; Stop 12/28/18 at 07:06; Status DC Iohexol (Omnipaque 350 Mg/ml) 100 ml 1X ONCE IV Last administered on at 08:32; Start 12/28/18 at 08:35; Stop 12/28/18 at 08:36; Status DC Ondansetron HCl (Zofran) 4 mg PRN Q4HRS PRN IV NAUSEA/VOMITING; Start 12/28/18 at 08:30; Stop 12/28/18 at 12:41; Status DC Sodium Chloride 1,000 ml @ 0 mls/hr Q0M IV Last administered on 12/29/18at 00: 31; Start 12/28/18 at 08:25; Stop 12/29/18 at 08:24; Status DC Diltiazem HCl 125 mg/Dextrose 125 ml @ 5 mls/hr CONT PRN IV SEE I/O RECORD Last administered on 12/29/18at 08:29; Start 12/28/18 at 08:30 Heparin Sodium/ Dextrose 500 ml @ 0 mls/hr CONT PRN IV SEE I/O RECORD Last administered on 12/28/18at 10:25; Start 12/28/18 at 09:30; Stop 12/28/18 at 18:12 ; Status DC Heparin Sodium/ Dextrose 500 ml @ 0 mls/hr CONT PRN IV SEE I/O RECORD; Start at 09:30; Status UNV Heparin Sodium (Porcine) (Heparin Sodium) 2,000 unit PRN Q6HRS PRN IV FOLLOW PROTOCOL GUIDELINES; Start 12/28/18 at 09:30 Heparin Sodium (Porcine) (Heparin Sodium) 1,000 unit PRN Q6HRS PRN IV FOLLOW PROTOCOL GUIDELINES; Start 12/28/18 at 09:30 Heparin Sodium (Porcine) (Heparin Sodium) 8,000 unit 1X ONCE IV Last administered on 12/28/18at 10:26; Start 12/28/18 at 09:45; Stop 12/28/18 at 09:46 ; Status DC Aspirin (Children'S Aspirin) 81 mg DAILYWBKFT PO Last administered on at 08:35; Start 12/29/18 at 08:00 Losartan Potassium (Cozaar) 100 mg DAILY PO Last administered on 12/29/18at 08: 35; Start 12/29/18 at 09:00 Pantoprazole Sodium (Protonix) 40 mg DAILYAC PO Last administered on 12/29/18at 08:35; Start 12/29/18 at 07:30 Atorvastatin Calcium (Lipitor) 20 mg QHS PO Last administered on 12/28/18at 19: 58; Start 12/28/18 at 21:00 Ondansetron HCl (Zofran) 4 mg PRN Q4HRS PRN IV NAUSEA/VOMITING; Start 12/28/18 at 12:30 Furosemide (Lasix) 40 mg BID IVP ; Start 12/28/18 at 21:00; Stop 12/28/18 at 21: 00; Status DC Furosemide (Lasix) 40 mg BID IVP Last administered on 12/28/18at 13:55; Start at 13:45; Stop 12/28/18 at 14:03; Status DC Furosemide (Lasix) 40 mg BID92 IVP Last administered on 12/29/18at 08:34; Start 12/29/18 at 09:00 Heparin Sodium/ Dextrose 500 ml @ 0 mls/hr CONT PRN IV SEE I/O RECORD Last administered on 12/29/18at 06:12; Start 12/28/18 at 18:15 Heparin Sodium (Porcine) (Heparin Sodium) 8,000 unit 1X ONCE IV Last administered on 12/28/18at 18:15; Start 12/28/18 at 18:15; Stop 12/28/18 at 18:17 ; Status DC Potassium Chloride (Klor-Con) 40 meq 1X ONCE PO Last administered on at 08:34; Start 12/29/18 at 08:00; Stop 12/29/18 at 08:01; Status DC Active Scripts Active Reported Aspirin 81 Mg Tab.chew 81 Mg PO DAILY Lasix (Furosemide) 20 Mg Tablet 1 Tab PO DAILY Simvastatin 40 Mg Tablet 1 Tab PO QHS Olmesartan Medoxomil 20 Mg Tablet 20 Mg PO DAILY Celebrex (Celecoxib) 200 Mg Capsule 1 Cap PO DAILY Omeprazole 20 Mg Capsule. 1 Cap PO DAILY Vitals/I & O Vital Sign - Last 24 Hours 12/28/18 12/28/18 12/28/18 12/28/18 13:33 15:26 16:23 17:30 Pulse 102 100 96 112 Resp 24 B/P (MAP) 131/80 (97) 99/82 (88) 126/81 (96) Pulse Ox 94 O2 Delivery Room Air 12/28/18 12/28/18 12/28/18 12/28/18 18:05 19:27 20:29 21:14 Temp 98.3 Pulse 100 105 98 92 Resp 26 20 20 21 B/P (MAP) 126/81 (96) 118/84 (95) 124/82 (96) 103/80 (88) Pulse Ox 98 98 94 O2 Delivery Room Air Room Air Room Air 12/28/18 12/28/18 12/28/18 12/28/18 22:30 22:45 22:52 23:06 Pulse 104 99 Resp 20 22 B/P (MAP) 116/64 (81) 116/82 (93) Pulse Ox 93 88 96 94 O2 Delivery Room Air Room Air Nasal Cannula Nasal Cannula O2 Flow Rate 2.0 2.0 12/29/18 12/29/18 12/29/18 12/29/18 00:24 01:19 02:21 03:20 Pulse 98 100 97 87 Resp 24 20 16 20 B/P (MAP) 116/86 (96) 116/81 (93) 110/79 (89) 102/76 (85) Pulse Ox 96 93 95 94 O2 Delivery Nasal Cannula Nasal Cannula Nasal Cannula Nasal Cannula O2 Flow Rate 2.0 2.0 2.0 2.0 12/29/18 12/29/18 12/29/18 12/29/18 04:15 05:12 06:02 06:21 Temp 97.7 Pulse 103 83 86 Resp 18 23 22 B/P (MAP) 114/84 (94) 104/87 (93) 116/76 (89) Pulse Ox 96 95 97 O2 Delivery Nasal Cannula Nasal Cannula Nasal Cannula O2 Flow Rate 2.0 2.0 2.0 12/29/18 12/29/18 12/29/18 12/29/18 07:28 08:30 08:35 08:38 Temp 98.1 Pulse 100 110 100 Resp 24 B/P (MAP) 109/67 (81) 121/81 (94) 109/67 Pulse Ox 95 O2 Delivery Room Air 12/29/18 12/29/18 10:57 12:04 Pulse 95 112 Intake and Output 12/28/18 12/28/18 12/29/18 14:59 22:59 06:59 Intake Total 300 ml 480 ml 420 ml Output Total 400 ml Balance 300 ml 480 ml 20 ml JAMIE DELGADO MD Dec 29, 2018 13:12
--- NOTE | 2018-12-29 14:55 | PDOC ---
PROVIDER NOTE PROVIDER NOTE PROVIDER NOTE S: No new events. No chest pain. Breathing better. O: VSS, still tachycardic. No significant changes to exam. Irregular heart tones. Labs reviewed Echo pending Tele noted. LE u/s results noted. Impression: 1. New onset afib with RVR in the setting of P.E Plan 1. Stop Dilt gtt, start Diltiazem XL 240mg daily 2. Continue lasix, losartan 3. Stop ASA 4. Awaiting echo prior to DC 5. Ok to change from heparin to oral therapy, will defer to primary team. Will f/u in the office for consideration of outpt CVN, will plan for an event monitor as well. Thanks VASU DISLA MD Dec 29, 2018 14:55
[2018-12-29] MEDS: APIXABAN 5 MG TABLET. PO SCH (16:59)
[2018-12-29] MEDS: ATORVASTATIN CALCIUM 20 MG TABLET PO SCH (20:31)
[2018-12-30] VITALS (8 sets, daily range): BP systolic 100–139; BP diastolic 60–86
[2018-12-30 06:48] LABS: BASO % 0 % (0-3); EOS # 0.1 x10^3/uL (0.0-0.7); EOS % 1 % (0-3); HEMATOCRIT 35.7 % (36.0-47.0); HEMOGLOBIN 11.5 g/dL (12.0-15.5); LYMPH # 2.1 x10^3/uL (1.0-4.8); LYMPH % 26 % (24-48); MEAN CORPUSCULAR HEMOGLOBIN 26 pg (25-35); MEAN CORPUSCULAR HGB CONC 32 g/dL (31-37); MEAN CORPUSCULAR VOLUME 80 fL (79-100); MONO # 0.6 x10^3/uL (0.0-1.1); MONO % 8 % (0-9); NEUT # 5.1 x10^3uL (1.8-7.7); NEUT % 64 % (31-73); PLATELET COUNT 180 x10^3/uL (140-400); RED BLOOD COUNT 4.47 x10^6/uL (3.50-5.40); RED CELL DISTRIBUTION WIDTH 14.8 % (11.5-14.5); WHITE BLOOD COUNT 7.9 x10^3/uL (4.0-11.0)
[2018-12-30 06:55] LABS: ALBUMIN 2.8 g/dL (3.4-5.0); ALBUMIN/GLOBULIN RATIO 0.8 (1.0-1.7); CALCIUM 8.7 mg/dL (8.5-10.1); CREATININE 0.9 mg/dL (0.6-1.0); GFR 63.4; MAGNESIUM 1.7 mg/dL (1.8-2.4); POTASSIUM 3.3 mmol/L (3.5-5.1); TOTAL BILIRUBIN 0.6 mg/dL (0.2-1.0); TOTAL PROTEIN 6.3 g/dL (6.4-8.2)
[2018-12-30] MEDS ORDERED: MAGNESIUM SULFATE 2GM 50 ML IV ONE (08:15)
[2018-12-30] MEDS: LOSARTAN 50 MG TABLET. PO SCH ×2 (08:16→10:29)
[2018-12-30] MEDS: PANTOPRAZOLE 40 MG TABLET. PO SCH (08:16)
[2018-12-30] MEDS: APIXABAN 5 MG TABLET. PO SCH (08:16)
[2018-12-30] MEDS: FUROSEMIDE 40 MG/4 ML VIAL IVP SCH ×2 (08:17→14:00)
--- NOTE | 2018-12-30 10:38 | PDOC ---
PROGRESS NOTES Diagnosis Problem Problems Medical Problems: (1) Acute congestive heart failure Status: Acute (2) Atrial fibrillation with RVR Status: Acute (3) Multiple pulmonary emboli Status: Acute Assessment Problems Medical Problems: (1) Acute congestive heart failure Status: Acute (2) Atrial fibrillation with RVR Status: Acute (3) Multiple pulmonary emboli Status: Acute 1. atrial fibrillation with RVR - rate control improving but remains 120's with minimal exertion. Add digoxin x 1 today. Await echocardiogram. If no acute abnormalities, would be ok for discharge home with outpatient follow up and MCT for AF burden. 2. trop elevation - remains in indeterminate range, likely secondary to Afib and PE. follow up outpatient for further evaluation. 3. PE - on anticoagulation with Eliquis. (continue 6 months) with outpatient follow up with PCP. 4. HTN - controlled. 5. hypokalemia - replace and recheck outpatient 6. hypomagnesemia - replace Ok for DC home this afternoon if no significant echo abnormalities and HR control improved. Outpatient follow up in 4 weeks. MCT for AF burden and rate control. Subjective wants to go home. no dyspnea, no chest pain, no lightheadedness. HR 120s Objective Vital Signs Date Time Temp Pulse Resp B/P (MAP) Pulse Ox O2 Delivery O2 Flow Rate FiO2 12/30/18 10:29 111 12/30/18 08:00 Room Air 12/30/18 08:00 98.3 20 117/82 (94) 96 12/29/18 06:02 2.0 Intake and Output 12/30/18 07:00 Intake Total 1260 ml Balance 1260 ml Intake Oral 1260 ml # Voids 9 Abdomen: Normal bowel sounds, Soft, No tenderness Heart: Other (IRR, no gallops, cklicks or rubs) Extremities: No cyanosis, Normal pulses General: Alert, Oriented X3, Cooperative, No acute distress Lungs: Clear to auscultation Neuro: Normal speech, Strength at 5/5 X4 ext Psych/Mental Status: Mental status NL, Mood NL Review of Relevant I have reviewed the following items brandon (where applicable) has been applied. Labs Laboratory Tests Test 12/28/18 11:36 12/28/18 14:40 12/28/18 16:10 12/29/18 00:25 Troponin I Quantitative 0.041 ng/mL (0-0.055) 0.038 ng/mL (0-0.055) Prothrombin Time 11.6 SEC (9.4-11.4) Prothromb Time International Ratio 1.2 (0.9-1.1) Activated Partial Thromboplast Time 23 SEC (23-33) > 130 SEC (23-33) Test 12/29/18 06:22 12/29/18 10:15 12/30/18 05:57 White Blood Count 6.8 x10^3/uL (4.0-11.0) 7.9 x10^3/uL (4.0-11.0) Red Blood Count 4.42 x10^6/uL (3.50-5.40) 4.47 x10^6/uL (3.50-5.40) Hemoglobin 11.6 g/dL (12.0-15.5) 11.5 g/dL (12.0-15.5) Hematocrit 35.3 % (36.0-47.0) 35.7 % (36.0-47.0) Mean Corpuscular Volume 80 fL (79-100) 80 fL (79-100) Mean Corpuscular Hemoglobin 26 pg (25-35) 26 pg (25-35) Mean Corpuscular Hemoglobin Concent 33 g/dL (31-37) 32 g/dL (31-37) Red Cell Distribution Width 15.3 % (11.5-14.5) 14.8 % (11.5-14.5) Platelet Count 174 x10^3/uL (140-400) 180 x10^3/uL (140-400) Neutrophils (%) (Auto) 63 % (31-73) 64 % (31-73) Lymphocytes (%) (Auto) 26 % (24-48) 26 % (24-48) Monocytes (%) (Auto) 10 % (0-9) 8 % (0-9) Eosinophils (%) (Auto) 1 % (0-3) 1 % (0-3) Basophils (%) (Auto) 1 % (0-3) 0 % (0-3) Neutrophils # (Auto) 4.2 x10^3uL (1.8-7.7) 5.1 x10^3uL (1.8-7.7) Lymphocytes # (Auto) 1.8 x10^3/uL (1.0-4.8) 2.1 x10^3/uL (1.0-4.8) Monocytes # (Auto) 0.7 x10^3/uL (0.0-1.1) 0.6 x10^3/uL (0.0-1.1) Eosinophils # (Auto) 0.1 x10^3/uL (0.0-0.7) 0.1 x10^3/uL (0.0-0.7) Basophils # (Auto) 0.0 x10^3/uL (0.0-0.2) 0.0 x10^3/uL (0.0-0.2) Sodium Level 139 mmol/L (136-145) 140 mmol/L (136-145) Potassium Level 3.3 mmol/L (3.5-5.1) 3.3 mmol/L (3.5-5.1) Chloride Level 105 mmol/L (98-107) 104 mmol/L (98-107) Carbon Dioxide Level 24 mmol/L (21-32) 27 mmol/L (21-32) Anion Gap 10 (6-14) 9 (6-14) Blood Urea Nitrogen 13 mg/dL (7-20) 12 mg/dL (7-20) Creatinine 0.8 mg/dL (0.6-1.0) 0.9 mg/dL (0.6-1.0) Estimated GFR (Cockcroft-Gault) 72.7 63.4 Glucose Level 104 mg/dL (70-99) 97 mg/dL (70-99) Calcium Level 8.5 mg/dL (8.5-10.1) 8.7 mg/dL (8.5-10.1) Activated Partial Thromboplast Time 78 SEC (23-33) BUN/Creatinine Ratio 13 (6-20) Magnesium Level 1.7 mg/dL (1.8-2.4) Total Bilirubin 0.6 mg/dL (0.2-1.0) Aspartate Amino Transf (AST/SGOT) 25 U/L (15-37) Alanine Aminotransferase (ALT/SGPT) 27 U/L (14-59) Alkaline Phosphatase 82 U/L (46-116) Total Protein 6.3 g/dL (6.4-8.2) Albumin 2.8 g/dL (3.4-5.0) Albumin/Globulin Ratio 0.8 (1.0-1.7) Medications Current Medications Diltiazem HCl (Cardizem Iv Push) 25 mg STK-MED ONCE IVP ; Start 12/28/18 at 06: 53; Stop 12/28/18 at 06:54; Status DC Diltiazem HCl (Cardizem Iv Push) 20 mg 1X ONCE IVP Last administered on at 07:02; Start 12/28/18 at 07:00; Stop 12/28/18 at 07:13; Status DC Diltiazem HCl 125 mg/Dextrose 125 ml @ 10 mls/hr 1X ONCE IV Last administered on 12/28/18at 07:20; Start 12/28/18 at 07:00; Stop 12/28/18 at 19:29 ; Status DC Sodium Chloride 1,000 ml @ 125 mls/hr Q8H IV Last administered on 12/28/18at 07 :21; Start 12/28/18 at 06:54; Stop 12/28/18 at 14:53; Status DC Ondansetron HCl (Zofran) 4 mg STK-MED ONCE .ROUTE ; Start 12/28/18 at 07:02; Stop 12/28/18 at 07:03; Status DC Dextrose 100 ml @ As Directed STK-MED ONCE IV ; Start 12/28/18 at 07:05; Stop 12/28/18 at 07:06; Status DC Diltiazem HCl (Cardizem) 125 mg STK-MED ONCE IV ; Start 12/28/18 at 07:05; Stop 12/28/18 at 07:06; Status DC Iohexol (Omnipaque 350 Mg/ml) 100 ml 1X ONCE IV Last administered on at 08:32; Start 12/28/18 at 08:35; Stop 12/28/18 at 08:36; Status DC Ondansetron HCl (Zofran) 4 mg PRN Q4HRS PRN IV NAUSEA/VOMITING; Start 12/28/18 at 08:30; Stop 12/28/18 at 12:41; Status DC Sodium Chloride 1,000 ml @ 0 mls/hr Q0M IV Last administered on 12/29/18at 00: 31; Start 12/28/18 at 08:25; Stop 12/29/18 at 08:24; Status DC Diltiazem HCl 125 mg/Dextrose 125 ml @ 5 mls/hr CONT PRN IV SEE I/O RECORD Last administered on 12/29/18at 08:29; Start 12/28/18 at 08:30 Heparin Sodium/ Dextrose 500 ml @ 0 mls/hr CONT PRN IV SEE I/O RECORD Last administered on 12/28/18at 10:25; Start 12/28/18 at 09:30; Stop 12/28/18 at 18:12 ; Status DC Heparin Sodium/ Dextrose 500 ml @ 0 mls/hr CONT PRN IV SEE I/O RECORD; Start at 09:30; Status UNV Heparin Sodium (Porcine) (Heparin Sodium) 2,000 unit PRN Q6HRS PRN IV FOLLOW PROTOCOL GUIDELINES; Start 12/28/18 at 09:30 Heparin Sodium (Porcine) (Heparin Sodium) 1,000 unit PRN Q6HRS PRN IV FOLLOW PROTOCOL GUIDELINES; Start 12/28/18 at 09:30 Heparin Sodium (Porcine) (Heparin Sodium) 8,000 unit 1X ONCE IV Last administered on 12/28/18at 10:26; Start 12/28/18 at 09:45; Stop 12/28/18 at 09:46 ; Status DC Aspirin (Children'S Aspirin) 81 mg DAILYWBKFT PO Last administered on at 08:35; Start 12/29/18 at 08:00; Stop 12/29/18 at 14:49; Status DC Losartan Potassium (Cozaar) 100 mg DAILY PO Last administered on 12/30/18at 10: 29; Start 12/29/18 at 09:00 Pantoprazole Sodium (Protonix) 40 mg DAILYAC PO Last administered on 12/30/18at 08:16; Start 12/29/18 at 07:30 Atorvastatin Calcium (Lipitor) 20 mg QHS PO Last administered on 12/29/18at 20: 31; Start 12/28/18 at 21:00 Ondansetron HCl (Zofran) 4 mg PRN Q4HRS PRN IV NAUSEA/VOMITING; Start 12/28/18 at 12:30 Furosemide (Lasix) 40 mg BID IVP ; Start 12/28/18 at 21:00; Stop 12/28/18 at 21: 00; Status DC Furosemide (Lasix) 40 mg BID IVP Last administered on 12/28/18at 13:55; Start at 13:45; Stop 12/28/18 at 14:03; Status DC Furosemide (Lasix) 40 mg BID92 IVP Last administered on 12/30/18at 08:17; Start 12/29/18 at 09:00 Heparin Sodium/ Dextrose 500 ml @ 0 mls/hr CONT PRN IV SEE I/O RECORD Last administered on 12/29/18at 06:12; Start 12/28/18 at 18:15 Heparin Sodium (Porcine) (Heparin Sodium) 8,000 unit 1X ONCE IV Last administered on 12/28/18at 18:15; Start 12/28/18 at 18:15; Stop 12/28/18 at 18:17 ; Status DC Potassium Chloride (Klor-Con) 40 meq 1X ONCE PO Last administered on at 08:34; Start 12/29/18 at 08:00; Stop 12/29/18 at 08:01; Status DC Diltiazem HCl (Cardizem 24hr Cd) 240 mg DAILY PO Last administered on at 08:16; Start 12/29/18 at 15:00 Apixaban (Eliquis) 10 mg BIDWMEALS PO Last administered on 12/30/18at 08:16; Start 12/29/18 at 17:00 Magnesium Sulfate 50 ml @ 25 mls/hr 1X ONCE IV Last administered on 12/30/18at 08:15; Start 12/30/18 at 08:15; Stop 12/30/18 at 10:14; Status DC Active Scripts Active Reported Aspirin 81 Mg Tab.chew 81 Mg PO DAILY Lasix (Furosemide) 20 Mg Tablet 1 Tab PO DAILY Simvastatin 40 Mg Tablet 1 Tab PO QHS Olmesartan Medoxomil 20 Mg Tablet 20 Mg PO DAILY Celebrex (Celecoxib) 200 Mg Capsule 1 Cap PO DAILY Omeprazole 20 Mg Capsule. 1 Cap PO DAILY Vitals/I & O Vital Sign - Last 24 Hours 12/29/18 12/29/18 12/29/18 12/29/18 10:57 12:04 13:15 15:04 Pulse 95 112 101 101 B/P (MAP) 106/66 (79) 106/66 12/29/18 12/29/18 12/29/18 12/29/18 16:40 18:38 20:00 20:38 Temp 98.0 Pulse 107 102 93 Resp 24 B/P (MAP) 119/61 (80) Pulse Ox 93 O2 Delivery Room Air Room Air 12/29/18 12/29/18 12/30/18 12/30/18 22:00 23:00 00:01 00:01 Pulse 98 94 94 Resp 20 20 20 B/P (MAP) 110/77 (88) 124/71 (88) 108/83 (91) O2 Delivery Room Air Room Air Room Air Room Air 12/30/18 12/30/18 12/30/18 12/30/18 01:00 02:00 03:00 04:00 Pulse 94 94 92 Resp 20 20 18 B/P (MAP) 115/75 (88) 104/86 (92) 119/75 (90) Pulse Ox 92 O2 Delivery Room Air Room Air Room Air Room Air 12/30/18 12/30/18 12/30/18 12/30/18 04:00 05:00 08:00 08:00 Temp 98.3 Pulse 90 92 98 Resp 20 20 20 B/P (MAP) 100/79 (86) 101/76 (84) 117/82 (94) Pulse Ox 94 96 O2 Delivery Room Air Room Air Room Air Room Air 12/30/18 12/30/18 12/30/18 08:16 08:16 10:29 Pulse 110 120 111 Intake and Output 12/29/18 12/29/18 12/30/18 15:00 23:00 07:00 Intake Total 1140 ml 120 ml Balance 1140 ml 120 ml MIGEL FOLEY APRN Dec 30, 2018 10:38
[2018-12-30] MEDS ORDERED: DIGOXIN IV 500 MCG/2 ML AMPUL. IV ONE ×2 (10:45→11:00)
--- NOTE | 2018-12-30 15:29 | CARD ---
MR#: [id number] Date of Study: 12/30/2018 Ordering Physician: JAMIE DELGADO, Referring Physician: ROSIBEL WOODWARD, Tech: Nicole Liu ILA APPROVED REPORT EXAM: Two-dimensional and M-mode echocardiogram with Doppler and color Doppler. Other Information Quality : Good Rhythm : Atrial FibrillationTechnically limited study due to body habitus. INDICATION Atrial Fibrillation 2D DIMENSIONS RVDd2.6 (2.9-3.5cm)Left Atrium(2D)3.9 (1.6-4.0cm) IVSd1.0 (0.7-1.1cm)Aortic Root(2D)2.5 (2.0-3.7cm) LVDd5.0 (3.9-5.9cm)PWd1.0 (0.7-1.1cm) LVDs4.3 (2.5-4.0cm)FS (%) 15.1 % SV37.9 mlLVEF(%)31.7 (>50%) Aortic Valve AoV Peak Manuelito.111.6cm/sAoV VTI17.1cm AO Peak GR.5.0mmHgAO Mean GR.3mmHg QIANA (VTI)3.15cm2 Tricuspid Valve TR P. [id number]/sRAP [id number] TR Peak Gr.[id number] LEFT VENTRICLE The left ventricle is normal size. There is normal left ventricular wall thickness. Left ventricle sy stolic function is mildly impaired. The Ejection Fraction is 45-50%. There is mild global hypokinesis . Tissue Doppler imaging reveals moderate left ventricular diastolic dysfunction. RIGHT VENTRICLE The right ventricle is mildly dilated. The right ventricular systolic function is normal. ATRIA The left atrium size is normal. The right atrium size is normal. The interatrial septum is intact wit h no evidence for an atrial septal defect or patent foramen ovale as noted on 2-D or Doppler imaging. AORTIC VALVE The aortic valve is calcified but opens well. Doppler and Color Flow revealed no significant aortic r egurgitation. There is no significant aortic valvular stenosis. MITRAL VALVE The mitral valve is calcified but opens well. Posterior mitral annular calcification is mild. There i s no evidence of mitral valve prolapse. There is no mitral valve stenosis. Doppler and Color-flow rev ealed mild mitral regurgitation. TRICUSPID VALVE The tricuspid valve is normal in structure and function. Doppler and Color Flow revealed trace to mil d tricuspid regurgitation. There is moderate pulmonary hypertension. The PA pressure was estimated at 43 mmHg. There is no tricuspid valve stenosis. PULMONIC VALVE Doppler and Color Flow revealed trace to mild pulmonic valvular regurgitation. There is no pulmonic v alvular stenosis. GREAT VESSELS The aortic root is normal in size. The ascending aorta is normal in size. The IVC is dilated. PERICARDIAL EFFUSION There is no evidence of significant pericardial effusion. Critical Notification Critical Value: No <Conclusion> Left ventricle systolic function is mildly impaired. The Ejection Fraction is 45-50%. There is mild global hypokinesis. Doppler and Color Flow revealed trace to mild tricuspid regurgitation. There is moderate pulmonary hy pertension. The PA pressure was estimated at 43 mmHg. The IVC is dilated. Signed by : Michael Bedolla, Electronically Approved : 12/30/2018 15:29:06
[2018-12-30] MEDS ORDERED: APIX5TAB3 PO ×2 (15:34)
[2018-12-30] MEDS ORDERED: POTASSIUM CHLORIDE 20 MEQ TABLET.ER. PO ONE (15:45)
[2018-12-30] MEDS ORDERED: DILT240C2 PO (16:52)
--- NOTE | 2019-01-31 09:29 | DS ---
DATE OF DISCHARGE: 12/30/2018 HOSPITAL COURSE: A 63-year-old female, apparently admitted by Dr. Holt, came in with increased amount of shortness of breath, apparently diagnosed with acute congestive heart failure, atrial fibrillation. She was seen by Cardiology. She made excellent progress. She was discharged home. Apparently, she had pulmonary emboli. DISPOSITION: The patient was discharged home. DISCHARGE MEDICATIONS: See EMRAD. ACTIVITY: Decreased activity. IMPRESSION: Acute pulmonary emboli, atrial fibrillation with rapid ventricular response, acute on top of chronic diastolic heart failure. FOLLOWUP: The patient to follow up with her primary care physician. DIET: Heart healthy diet. ROSIBEL WOODWARD MD DR: RON/raulito JOB#: [id number] / [id number]
[2019-02-24] MEDS ORDERED: AMIO200T4 PO (14:26)
[2019-02-24] MEDS ORDERED: APIX5TAB3 PO (14:26)
== END 2018-12-30 17:15 | disposition home or self-care (01) | DRG 291 ==
LOC: ER 06:34 → ICU 08:54
PROVIDERS: ADMIT Internal Medicine; ATTEND Family Medicine
DX: I11.0 Hypertensive heart disease with heart failure (principal); I26.99 Other pulmonary embolism without acute cor pulmonale; I50.31 Acute diastolic (congestive) heart failure; N39.0 Urinary tract infection, site not specified; E78.5 Hyperlipidemia, unspecified; E83.42 Hypomagnesemia; E87.6 Hypokalemia; I48.91 Unspecified atrial fibrillation; K21.9 Gastro-esophageal reflux disease without esophagitis; Z79.01 Long term (current) use of anticoagulants; Z79.899 Other long term (current) drug therapy
CPT/HCPCS: 36415; 71045; 71275; 80048; 80053; 81001; 82553; 83735; 83880; 84484; 85025; 85379; 85610; 85730; 87641; 93005; 93306; 93970; 96365; 96366; 96376; J1160; J1644; J1940; J3475; J3490; Q9967; 99291-25; J7030

== ENCOUNTER → 2019-02-25 | Day surgery (SDC) | payer BC ==
[~2019-02-25] MED LIST: AMIO200T4 PO; APIX5TAB3 PO; ASPI-630 PO; ATROPINE 0.5 MG/5 ML DISP.SYRIN. IV PRN; BENZOCAINE ONE 20% MUCOSAL SPRAY. MM; CELE200C PO; DILT240C2 PO; FURO-69 PO; IV RINGERS SOLUTION,LACTATED 1,000 ML IV SCH; LIDOCAINE 2% PF Vial for OR 5 ML VIAL. ONE; LIDOCAINE 2% TOPICAL JELLY 30GM TUBE. TP ONE; LIDOCAINE 2% VISCOUS 15 ML SOLUTION. SWSW ONE; OLME20TA21 PO; OMEP20CA10 PO; ONDANSETRON PF 4 MG/2 ML VIAL. IV PRN; PROCHLORPERAZINE 10 MG/2 ML VIAL. IV PRN; PROPOFOL 10,000 MCG/ML (20ML) VIAL IV ONE; PROPOFOL 20 ML IV ONE; SIMV40TA3 PO; diphenhydrAMINE 50 MG/ML VIAL IV PRN
--- NOTE | 2019-02-25 09:45 | PDOC ---
PROVIDER NOTE PROVIDER NOTE PROVIDER NOTE CARDIOLOGY HISTORY AND PHYSICAL: Reason for procedure: Atrial fibrillation Planned procedure: Cardioversion. Anesthesia: Deep sedation with propofol. HPI: Pleasant 63 y.o woman presenting to the hospital for outpt elective cardioversion. We initially met with her when she was found to have a pulmonary embolus. In this setting she had RV dilation and atrial fibrillation. She was initially treated with medical therapy and rate control agents as well as anticoagulation. Ultimately, upon follow-up in the office she continued to have exertional dyspnea and was felt that atrial fibrillation maybe continuing partly due to her dyspnea along with her pulmonary embolus. After several weeks of treatment with anticoagulation she altered we decided to proceed with cardioversion to help attain sinus rhythm to improve her exertional dyspnea. At her last office visit she denies any other cardiac issues. Her repeat echocardiogram on an outpatient basis demonstrated improvement in her RV dilation and she had normal LV systolic function. Past medical history: 1. Pulmonary embolus 2. RV dysfunction with improvement 3. Morbid obesity 4. New onset atrial fibrillation Sochx: No alcohol, tob or illicits. ALL: NKDA Current CV meds: Eliquis 5mg bid Simvastatin 40mg daily Cartia 240mg daily Amiodarone 200mg daily Furosemide 20mg daily Olmesartan 20mg daily ROS: Negative for 07/28 systems reviewed unless otherwise noted above in HPI. Physical exam: 5'8'', 255 lbs. See vitals sheet (BP 155/100, HR 123) Constitutional: Well developed, well nourished, no acute distress, non-toxic appearance. [] HENT: Normocephalic, atraumatic, bilateral external ears normal, oropharynx moist, no oral exudates, nose normal. [] Eyes: PERRLA, EOMI, conjunctiva normal, no discharge. [] Neck: Normal range of motion, no tenderness, supple, no stridor. [] Cardiovascular:irregular rhythm, no murmur [] Lungs & Thorax: Bilateral breath sounds clear to auscultation [] Abdomen: Bowel sounds normal, soft, no tenderness, no masses, no pulsatile masses. [] Skin: Warm, dry, no erythema, no rash. [] Back: No tenderness, no CVA tenderness. [] Extremities: No tenderness, no cyanosis, no clubbing, ROM intact, no edema. [] Neurologic: Alert and oriented X 3, normal motor function, normal sensory function, no focal deficits noted. [] Psychologic: Affect normal, judgement normal, mood normal. [] Labs pending EKG with afib with RVR. Impression: 1. Dyspnea with prior P.E and afib. Plans: 1. Cardioversion. 2. If cardioversion fails, plan for evaluation at for consideration of ablation therapy as the patient insurance is [facility] only. VASU DISLA MD February 25, 2019 09:45
--- NOTE | 2019-02-25 10:12 | PHYS DOC ---
MODERATE SEDATION ASSESSMENT* RISKS/ALTERNATIVES Risks/Alternatives Risks and alternatives of this type of sedation and procedure discussed with: RISK/ALTERNATIVES DISCUSSED: Patient H & P ON CHART H & P H & P on chart and reviewed for co-morbid conditions and appropriate labs. H&P ON CHART: Yes STATUS PREG STATUS ASSESSED: N/A MEDS/ALLERGIES REVIEWED Meds/Allergies Reviewed Medications and Allergies including time and route of recently administered narcotics and sedatives. MEDS/ALLERGIES REVIEWED: Yes ASA RATING ASA RATING: II AIRWAY ASSESSMENT Airway Assessment Airway patency, oral function limitations, presence of caps, crowns, dentures, partials, and ability to extend neck assessed. AIRWAY ASSESSMENT: Yes MALLAMPATI SCORE MALLAMPATI SCORE: II PRE-SEDATION ASSESSMENT PRE-SEDATION PHYSICAL: Yes VASU DISLA MD February 25, 2019 10:12
--- NOTE | 2019-02-25 10:41 | PDOC ---
PROVIDER NOTE PROVIDER NOTE PROVIDER NOTE PROCEDURE NOTE: PROCEDURE: CARDIOVERSION, SYNCHRONIZED for atrial fibrillation DETAILS: After informed consent and appropriate time out, the patient was sedated with propofol. See anesthesia notes for details. After sedation, a synchronized 200 j shock was delivered and the patient converted to SR. The patient's post conversion vitals were wnl. No immediate complications. She was brought back to the recovery area in stable condition. Family notified. Conclusion; Successful external cardioversion for afib to SR. VASU DISLA MD February 25, 2019 10:41
--- NOTE | 2019-02-25 10:44 | EKG ---
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
[2019-02-25 10:59] VITALS: BP 125/77
== END | disposition home or self-care (01) ==
LOC: SURG 09:25
PROVIDERS: ATTEND Internal Medicine Cardiovascular Disease
DX: I48.91 Unspecified atrial fibrillation (principal); I26.99 Other pulmonary embolism without acute cor pulmonale; I51.9 Heart disease, unspecified; E66.09 Other obesity due to excess calories; Z79.899 Other long term (current) drug therapy; Z79.01 Long term (current) use of anticoagulants; Z68.38 Body mass index [BMI] 38.0-38.9, adult
CPT/HCPCS: 92960; J2704; J7120; J2001